=== PATIENT | female | born 2000 | race Caucasian/White ===

== ENCOUNTER 2019-04-03 00:26 | Emergency (ER) | payer OTHER ==
[~2019-04-03] VITALS: Ht 172.7 cm; Wt 127.0 kg
[~2019-04-03 00:26] MED LIST: ALBU.083IS IH; ALBU90OI INH; AMLO10 PO; AMLO5 PO; AMOCLA875 PO; AMOX875 PO; AZIT250 PO; BENZ100A PO; CODACEE120 PO; HYDACE5 PO; IBUPROFEN 400 MG; Keflex500 MG PO; LISI5 PO; NITR100CA PO; PENVK250 PO; PRED20 PO; Prednisone10 MG PO; Prednisone20 MG PO; QUIN5 PO; RXCLIN PO; SODCHL.65S; TYLENOL MELT AWAYS; Zithromax250 MG PO; Zofran Odt4 MG SL
== END 2019-04-03 02:40 | disposition home or self-care (01) ==
LOC: ER 00:26
DX: J01.90 Acute sinusitis, unspecified (principal); I10 Essential (primary) hypertension; Z88.2 Allergy status to sulfonamides; Z79.899 Other long term (current) drug therapy
CPT/HCPCS: 99283